=== PATIENT | female | born 1995 | race American Indian/Alaskan Native ===

== ENCOUNTER 2017-02-18 01:00 | Emergency (ER) | payer OTHER ==
[2017-02-18] MEDS ORDERED: TYLENOL PO ONE (03:45)
[2017-02-18] MEDS ORDERED: TYLENOL ONE (03:50)
--- NOTE | 2017-02-18 05:20 | Emergency Department Report ---
Minor Respiratory - HPI Chief Complaint: Upper Respiratory Infection Stated Complaint: LYMPH NODES SWELLING Time Seen by Provider: 02/18/17 05:15 Duration: 2 weeks. Pain Location: Throat (sore throat that is 4 out of 10 that started in the morning and headache 2 hours.) Severity: mild Minor Respiratory: Yes Rhinorrhea (nasal congestion and postnasal drainage), Yes Sore Throat (denies drooling or difficulty swallowing), Yes Able to Tolerate Fluids, Yes Cough, No Ear Pain (clogged ear sensation), No Sick Contacts, No Hemoptysis, No Chest Pain, No Shortness of Breath, No Fever Other History: Patient reports that she has a lymph nodes under her chin is swollen and she just got over a cold and now its return. She states she's taken [id number] medication but it's not helping. She is complaining of sore throat that started this morning along with headache 2 hours ago. Sore throat is 4-10 only with swallowing. Also sore throat with coughing. Also reports that she has headache it at a 10 located to the front of her head. She said headache just started 2 hours ago. She says she gets headaches on and off. Denies any nausea or vomiting. Denies any visual difficulties. Denies any dizziness or blurred vision. Denies any chest pain or difficulty breathing. ED Review of Systems ROS: Stated complaint: LYMPH NODES SWELLING Other details as noted in HPI Comment: All other systems reviewed and negative Constitutional: no symptoms reported Eyes: denies: eye pain, eye discharge ENT: throat pain, congestion (nasal congestion and drainage.). denies: ear pain , dental pain, hearing loss, epistaxis Respiratory: cough. denies: orthopnea, shortness of breath, SOB with exertion, SOB at rest, stridor, wheezing Cardiovascular: denies: chest pain, palpitations, dyspnea on exertion, orthopnea , edema, syncope, paroxysmal nocturnal dyspnea Gastrointestinal: denies: abdominal pain, nausea, vomiting, diarrhea, constipation, hematemesis, melena, hematochezia Genitourinary: denies: urgency, dysuria, frequency, hematuria, discharge, abnormal menses, dyspareunia Musculoskeletal: denies: back pain, joint swelling, arthralgia, myalgia Skin: denies: rash, pruritus Neurological: headache. denies: weakness, numbness, paresthesias, confusion, abnormal gait, vertigo ED Past Medical Hx - Past Medical History Previous Medical History?: No - Surgical History Past Surgical History?: Yes Additional Surgical History: L knee sx, 2015 - Family History Family history: hypertension - Social History Smoking Status: Never Smoker Substance Use Type: None - Medications Home Medications: Home Medications Medication Instructions Recorded Confirmed Last Taken Type Amoxicillin/K Clav Tab [Augmentin 1 tab PO Q12HR 10 Days #20 tab 02/18/17 Unknown Rx 875 mg] Cetirizine HCl [ZyrTEC] 10 mg PO QAM 14 Days #14 capsule 02/18/17 Unknown Rx Fluticasone [Flonase] 1 spray NS QDAY 14 Days #1 bottle 02/18/17 Unknown Rx Ibuprofen [Motrin] 600 mg PO Q8H PRN 5 Days #15 tablet 02/18/17 Unknown Rx Minor Respiratory Exam - Exam General: Vital signs noted. No distress. Alert and acting appropriately. This is a 21-year-old female well-nourished well-developed in no acute distress. HEENT: Yes Pharyngeal Erythema (positive pharyngeal erythema, no peritonsillar abscess, no trismus, oral airways patent. Uvula is midline.), Yes Moist Mucous Membranes, Yes Rhinorrhea (positive nasal congestion with erythema and clear drainage.), Yes Frontal Tenderness (tender to palpate.), No Pharyngeal Exudates , No Conjuctival Injection, No Maxillary Tenderness Ear: Neither TM Bulge (Maximo TM congested without erythema), Neither TM Erythema, Neither EAC Pain, Neither EAC Discharge Neck: Yes Supple (full range of motion and no C-spine tenderness. No muscular tenderness.), No Adenopathy Lungs: Yes Good Air Exchange, Yes Cough (dry cough), No Wheezes, No Ronchi, No Stridor, No Labored Respirations, No Retractions, No Use of Accessory Muscles, No Other Abnormal Lung Sounds Heart: Yes Regular (S1, S2.regular rate and rhythm.), No Murmur Abdomen: Yes Peritoneal Signs, Yes Normal Bowel Sounds, No Tenderness (no acute abdomen) Skin: No Rash, No Edema Neurologic: Alert and oriented, no deficits. Alert and oriented 3, normal gait, normal reflexes, normal speech. No facial drooping. No sensory or motor deficit. Speech is clear and GCS at 15. Negative Romberg and pronator drift. Musculoskeletal: Unremarkable. Extremity and musculoskeletal exam: No clubbing, cyanosis or edema. +2 pulses all extremities and no neurovascular compromise. +5 strength in all extremities. No joint deformities, crepitus, effusion or erythema. No laceration, abrasion or contusion to her extremities. Patient with full active range of motion to all extremities. No bony abnormalities or deformity. ED Course Vital Signs 02/18/17 02/18/17 02/18/17 01:02 01:11 03:33 Temperature 98.5 F 98.5 F Pulse Rate 74 72 72 Respiratory 16 16 Rate Blood Pressure 111/72 111/72 Blood Pressure 111/72 [Right] O2 Sat by Pulse 100 99 99 Oximetry 02/18/17 03:58 Temperature Pulse Rate Respiratory 18 Rate Blood Pressure Blood Pressure [Right] O2 Sat by Pulse Oximetry - Reevaluation(s) Reevaluation #1: 02/18/17 06:02 had uneventful ED stay ED Medical Decision Making - Medical Decision Making Pt reports that she has lymph nodes under her chin as well and just getting over a cold and sore throat will repeat sore throat that started in the morning and an headache that started 2 hours ago prior to coming to the emergency room. She says she took [id number] cough and cold medication without any relief. She's had previous episode of headaches before when she has similar symptoms. Patient and found to have acute sinusitis, pharyngitis and acute headache, episodic . I discussed diagnosis and treatment plan patient and also I told her to . strep test is negative and culture is pending. Patient has been having symptoms that's been ongoing and recurrent and I will put her on antibiotic. Patient discharged from ED in stable condition with prescription for Augmentin, Zyrtec, Flonase and to follow-up with primary care physician in 2 days if she does not have a primary care physician she needs to follow-up with [facility] Critical care attestation.: If time is entered above; I have spent that time in minutes in the direct care of this critically ill patient, excluding procedure time. ED Disposition Clinical Impression: Nasal congestion with rhinorrhea Acute sinusitis Qualifiers: Sinusitis location: unspecified location Recurrence: recurrent Qualified Code(s ): J01.91 - Acute recurrent sinusitis, unspecified Pharyngitis Qualifiers: Pharyngitis/tonsillitis etiology: unspecified etiology Qualified Code(s): J02.9 - Acute pharyngitis, unspecified Headache Qualifiers: Headache type: unspecified Headache chronicity pattern: episodic headache Intractability: not intractable Qualified Code(s): R51 - Headache Disposition: DC-01 TO HOME OR SELFCARE Is pt being admited?: No Does the pt Need Aspirin: No Condition: Stable Instructions: Sinusitis (ED), Pharyngitis (ED), Upper Respiratory Infection (ED ) Additional Instructions: Please increase her fluid intake Flush nostrils with saline nasal spray take antibiotic as prescribed F/U with primary care physician as instructed Gargle with warm salt water and this will help to relieve his sore throat Take Motrin for sore throat as prescribed and this also helped her headache Prescriptions: Amoxicillin/K Clav Tab [Augmentin 875 mg] 1 tab PO Q12HR 10 Days #20 tab Cetirizine HCl [ZyrTEC] 10 mg PO QAM 14 Days #14 capsule Fluticasone [Flonase] 1 spray NS QDAY 14 Days #1 bottle Ibuprofen [Motrin] 600 mg PO Q8H PRN 5 Days #15 tablet PRN Reason: Pain Referrals: NILA TURNER MD [Primary Care Provider] - 02/20/17 [facility] [Outside] - 02/20/17 Forms: Work/School Release Form(ED)
[2017-02-18 06:48] VITALS: BP 114/72
== END 2017-02-18 06:44 | disposition home or self-care (01) ==
LOC: ED 01:00
DX: J01.10 Acute frontal sinusitis, unspecified (principal)
CPT/HCPCS: 87116; 87430; 99282